=== PATIENT | male | born 1950 | race Caucasian/White ===

== ENCOUNTER 2016-09-23 16:27 | Observation (INO) | payer SELFPAY ==
[2016-09-23 16:37] VITALS: BMI 22.1
[2016-09-23] MEDS ORDERED: ASPIRIN (CHEWABLE) 81 MG TAB PO ONE (16:53)
[2016-09-23 17:00] LABS: AUTOMATED BASOPHIL 1.1 % (0-2); AUTOMATED EOSINOPHIL 1.3 % (0-5); AUTOMATED LYMPH 26.7 % (17-44); AUTOMATED NEUTROPHIL 62.9 % (45-76); MPV 8.7 fL (7.4-10.4)
[2016-09-23] MEDS ORDERED: NITROGLYCERINE 0.4 MG TAB SL ONE ×2 (17:03→22:04)
[2016-09-23] MEDS ORDERED: NITROGLYCERINE 0.4 MG TAB SL PRN ×2 (17:04→20:03)
[2016-09-23] MEDS ORDERED: METOPROLOL TARTRATE 25 MG TAB PO ONE (17:05)
--- NOTE | 2016-09-23 17:05 | EDPRACDOC ---
- General Information Chief Complaint: Chest Pain Stated Complaint: CP HEAVY WITH ARM & THROAT PAIN Time Seen by Provider: 09/23/16 16:52 Information Source: Patient Mode of Arrival: Walk Home Medications: Home Medications No Home Medications 09/23/16 Allergies/Adverse Reactions: Allergies Allergy/AdvReac Type Severity Reaction Status Date / Time Penicillins Allergy Unknown Verified 06/06/15 16:16 - History of Present Illness Onset: since Saturday HPI: PATIENT PRESENTS C/O CHEST PAIN MIDSTERNUM WITH RADIATION TO B/L SHOULDERS AND NECK. BEGAN 3 DAYS AGO INTERMITTENT. WORSE WITH EXERTION. MILD SOB. EPISODES LASTING 10-20 MINUTES. LAST STRESS TEST 10 YEARS AGO. Chest Pain Location: Reports: Substernal Pain Radiation: Reports: Neck, Shoulder (L), Shoulder (R) Symptoms Occur: Reports: Gradually Cardiac Risk Factors: Reports: Smoker, Family History, Hyperlipidemia, Hypertension. Denies: Diabetes Prehospital Care: Reports: None Pain Came On: Reports: Gradually Pain Status: Present Now Pain Description: Reports: Pressure Pain Severity: Moderate Pain Worsens With: Reports: Exertion Associated Signs and Symptoms: Reports: SOB ED Past Medical History - History Reviewed Yes Nurses notes reviewed and agree except as marked Travel Outside of [place] in the Last 3 Months?: No - Patient Medical History Cardiac History: Reports: Hypertension, Hypercholesterolemia (quit taking medications) Respiratory History: Reports: COPD Psychological History: Denies: Depression Surgical History: Reports: Cholecystectomy, Other (HYPOSPADIAS REPAIR A BABY) - Family Medical History Reports: Cardiac Disorders - Social Medical History Smoking Status: Heavy tobacco smoker (5 or more cigarettes/day or daily pipe/ cigar) ETOH: None Substance Abuse: None Lives With: Family Lives In: Home EDM Review of Systems - Review of Systems ROS Negative Except as Marked: Yes All systems reviewed and were negative except as marked Constitutional: No Symptoms Reported. negative: Fever, Chills, Weakness, Fatigue, Loss of Appetite Eyes: No Symptoms Reported. negative: Redness, Blurred Vision, Double Vision, Discharge, Pain, Light Sensitive, Photophobia Ears: No Symptoms Reported. negative: Pain, Hearing Loss, Drainage, Ear Pulling Throat: No Symptoms Reported. negative: Pain, Swelling Nose: No Symptoms Reported. negative: Congestion, Bleeding, Discharge, Injection, Swelling, Deformity, Ecchymosis, Tender, Abrasion, Laceration Mouth: No Symptoms Reported. negative: Pain, Drooling Respiratory: Shortness of Breath. negative: Barky Cough, Brassy Cough, Cough, Hemoptysis, Wheezing Cardiovascular: Chest Pain. negative: Cyanosis, Edema, Orthopnea, Palpitations , PND, Syncope, Skin Mottling Gastrointestinal: No Symptoms Reported. negative: Pain, Constipation, Nausea, Vomiting, Diarrhea, Melena, Formula Intolerance Genitourinary: No Symptoms Reported. negative: Dysuria, Hematuria, Frequency, Discharge, Bleeding, Testicular Pain, Neurological: No Symptoms Reported. negative: Headache, Dizziness, Seizure, Numbness, Weakness, Speech Difficulty, Gait Difficulty Musculoskeletal: No Symptoms Reported. negative: Neck, Chestwall, Ribs, Back, Shoulder, Arm, Elbow, Forearm, Wrist, Hand, Pelvis, Hip, Femur, Knee, Leg, Ankle , Foot Integumentary: No Symptoms Reported. negative: Itching, Rash, Bruising, Wound Allergic/Immunologic: No Symptoms Reported. negative: Hives, Itching Hematologic: No Symptoms Reported. negative: Lymphadenopathy, Easy Bruising, Easy Bleeding Endocrine: No Symptoms Reported. negative: Weight Gain, Weight Loss Psychiatric: No Symptoms Reported. negative: Anxiety, Depression, Hallucinations, Insomnia, Suicidal - Physical Exam Constitutional: Alert (Awake), No apparent distress Oriented to: Time, Person, Place Last recorded Vital Signs: Last Vital Signs Temp 98.3 F 09/23/16 16:32 Pulse 58 L 09/23/16 16:40 Resp 18 09/23/16 16:40 BP 167/64 09/23/16 16:40 Pulse Ox 97 09/23/16 16:40 Oxygen Pulse Oxygen Saturation 97 O2 Device Oxygen Flow Rate Fraction of Inspired Oxygen ( FIO2) - HEENT Head: Normal ( normocephalic) Eye Exam: Normal (PERRL, EOMI, Sclera white) Oropharynx: Normal (Pharynx:Moist without exudate,Gums-no swelling) Tympanic Membrane: Normal ENT EAC: Normal TMJ: Normal Nose: No Symptoms Reported (septum midline) Neck: Normal (FROM, trachea at midline) - Respiratory/Cardiovascular Respiratory: Normal - CTA (BBS clear to auscultation without adventitious sounds ) Cardiovascular: Normal (RRR without murmur, gallop or rub) - GI Auscultation: Normal (NABS) Palpation: Normal (Soft,No rebound or guarding, non distended) Tenderness: Non tender Boswell's Sign: Negative - Musculoskeletal Back: Normal (Non-Tender) Extremities: Normal (Normal tone, Pulses 2+ No cyanosis or edema, FROM) - Integumentary Skin: Normal, Warm, Dry Lymphatics: Normal (no adenopathy) - Neurologic Memory Impaired: Normal Motor Function: Normal (Normal tone, Pulses 2+ No cyanosis or edema, FROM) Cranial Nerve: Normal (CN II-X11 intact sensation, strength 5/5) Cerebellar: Normal Mood Description: Normal Perception: Normal - Action ASA given in the ED: No - Results 09/23/16 16:35 09/23/16 16:35 WBC 10.3 xk/uL (3.8-10.8) 09/23/16 16:35 RBC 4.92 xM/uL (4.70-6.10) 09/23/16 16:35 Hgb 15.0 g/dL (14.0-18.0) 09/23/16 16:35 Hct 43.5 % (42-52) 09/23/16 16:35 MCV 88 fL (80-94) 09/23/16 16:35 MCH 30.5 pg (27-32) 09/23/16 16:35 MCHC 34.6 g/dl (33-36) 09/23/16 16:35 RDW 13.3 % (11.5-14.5) 09/23/16 16:35 Plt Count 225 xk/uL (130-400) 09/23/16 16:35 MPV 8.7 fL (7.4-10.4) 09/23/16 16:35 Neut % (Auto) 62.9 % (45-76) 09/23/16 16:35 Lymph % (Auto) 26.7 % (17-44) 09/23/16 16:35 [place] % (Auto) 8.0 % (3-10) 09/23/16 16:35 Eos % (Auto) 1.3 % (0-5) 09/23/16 16:35 Baso % (Auto) 1.1 % (0-2) 09/23/16 16:35 Absolute Neuts (auto) 6.39 xk/uL (1.7-8.2) 09/23/16 16:35 Absolute Lymphs (auto) 2.68 xk/uL (0.65-4.75) 09/23/16 16:35 Lab Results 09/23/16 16:35 WBC 10.3 RBC 4.92 Hgb 15.0 Hct 43.5 MCV 88 MCH 30.5 MCHC 34.6 RDW 13.3 Plt Count 225 MPV 8.7 Neut % (Auto) 62.9 Lymph % (Auto) 26.7 [place] % (Auto) 8.0 Eos % (Auto) 1.3 Baso % (Auto) 1.1 Absolute Neuts (auto) 6.39 Absolute Lymphs (auto) 2.68 Laboratory Results - last 24 hr 09/23/16 16:35 WBC 10.3 RBC 4.92 Hgb 15.0 Hct 43.5 MCV 88 MCH 30.5 MCHC 34.6 RDW 13.3 Plt Count 225 MPV 8.7 Neut % (Auto) 62.9 Lymph % (Auto) 26.7 [place] % (Auto) 8.0 Eos % (Auto) 1.3 Baso % (Auto) 1.1 Absolute Neuts (auto) 6.39 Absolute Lymphs (auto) 2.68 Laboratory Results 09/23/16 16:35 Decision Time to Discharge: 19:42 - Departure Yes I personally saw and evaluated the patient. Disposition: Admit IP To This Hospital Condition: Stable Final Diagnosis: Unstable angina Instructions: Chest Pain (ED) Education/Counseling Given To: Patient Education/Counseling Given Regarding: Diagnosis, Treatment, Prognosis Referrals: None,No Provider [Primary Care Provider] - One Week Prescriptions: No Action No Home Medications 0 NA DIR #0 info Decision to Admit Time: 19:42 Decision to admit date: 09/23/16 Decision to admit: from ED - Physician Consulted Hospitalist Time Called: 19:43 Provider Called: Jason Carter Time Paraeducator Returned Call: 19:43
[2016-09-23 17:07] LABS: BLOOD UREA NITROGEN 13 MG/DL (9-20); CALCIUM 8.9 MG/DL (8.4-10.2); CALCULATED OSMOLALITY 264 MOs/Kg (270-290); CHLORIDE 103 mEq/L (98-107); GLUCOSE 96 MG/DL (70-99); SODIUM LEVEL 137 mEq/L (137-146); TOTAL PROTEIN 7.5 G/DL (6.3-8.2)
[2016-09-23 17:12] LABS: PARTIAL THROMB. TIME 25.4 SEC (22-35)
--- NOTE | 2016-09-23 17:53 | DIRPT ---
CLINICAL DATA: Chest pain since Saturday. Emphysema. EXAM: PORTABLE CHEST 1 VIEW COMPARISON: 06/06/2015 FINDINGS: Tapering of the peripheral pulmonary vasculature favors emphysema. Perihilar and infrahilar interstitial accentuation. Cardiac and mediastinal margins appear normal. No pleural effusion identified. IMPRESSION: 1. Emphysema. 2. Infrahilar interstitial accentuation could be a manifestation of atypical pneumonia or early edema. No underlying cardiomegaly is observed. Electronically Signed By: Luis Velarde M.D. On: 09/23/2016 17:50
[2016-09-23] MEDS ORDERED: Pharmacy Review for Metformin - IV Contrast Given SCH (19:00)
--- NOTE | 2016-09-23 19:35 | DIRPT ---
CLINICAL DATA: Worsening chest pain for 5 days. EXAM: CT ANGIOGRAPHY CHEST WITH CONTRAST TECHNIQUE: Multidetector CT imaging of the chest was performed using the standard protocol during bolus administration of intravenous contrast. Multiplanar CT image reconstructions and MIPs were obtained to evaluate the vascular anatomy. CONTRAST: 100 mL Isovue 370 COMPARISON: None. FINDINGS: Mediastinum/Lymph Nodes: No pulmonary emboli or thoracic aortic dissection identified. No evidence of cardiomegaly or pericardial effusion. No masses or pathologically enlarged lymph nodes identified. Lungs/Pleura: No pulmonary mass, infiltrate, or effusion. Mild chronic appearing peripheral knee pulmonary interstitial prominence noted in without rangel honeycombing. Upper abdomen: No acute findings. Musculoskeletal: No chest wall mass or suspicious bone lesions identified. Review of the MIP images confirms the above findings. IMPRESSION: No evidence of pulmonary embolism or other acute findings. Mild chronic interstitial lung disease. Electronically Signed By: Romel Garnica M.D. On: 09/23/2016 19:32
[2016-09-23] MEDS ORDERED: ACETAMINOPHEN 325 MG/TAB TABLET PO PRN (20:57)
[2016-09-23] MEDS ORDERED: PROMETHAZINE 25 MG/ML VIAL IV PRN (20:57)
[2016-09-23] MEDS ORDERED: MORPHINE 2 MG/ML INJECTION IV PRN (20:57)
[2016-09-23] MEDS ORDERED: BISACODYL 5 MG TAB PO PRN (20:57)
[2016-09-23] MEDS ORDERED: SIMETHICONE 80 MG TAB PO PRN (20:57)
[2016-09-23] MEDS ORDERED: TEMAZEPAM 15 MG CAP PO PRN (20:57)
[2016-09-23] MEDS ORDERED: SENNA CONCENTRATE TAB PO PRN (20:57)
[2016-09-23] MEDS ORDERED: GUAIFEN 100 MG-DEXTROMETH 10 MG PER 5 ML PO PRN (20:57)
[2016-09-23] MEDS ORDERED: ACETAMINOPHEN 325 MG SUPP PR PRN (20:57)
[2016-09-23] MEDS ORDERED: ONDANSETRON HCL 4 MG/2 ML VIAL IV PRN (20:57)
[2016-09-23] MEDS ORDERED: Docusate Sodium 100 MG CAP PO PRN (20:57)
[2016-09-23] MEDS ORDERED: BENZONATATE 100 MG PERLES PO PRN (20:57)
[2016-09-23] MEDS ORDERED: Pharmacy Order Set Alert SCH (21:00)
[2016-09-23] MEDS ORDERED: CARVEDILOL 3.125 MG TAB PO SCH (21:00)
[2016-09-23] MEDS ORDERED: ATORVASTATIN 40 MG TAB PO SCH (21:00)
[2016-09-23] MEDS ORDERED: LISINOPRIL 2.5 MG TAB PO SCH (21:00)
--- NOTE | 2016-09-23 21:12 | HISTPHYS ---
- Chief Complaint chest pain - History of Present Illness PRIMARY CARE PROVIDER: Dr. Gutierrez in the [facility] HPI: The patient is a 66yo man who presents with acute chest pain. He changed the melonie in the kitchen 4 days ago and had neck and back pain. Then the next day started having chest pain and shortness of breath. Worse today. He came toward hospital then decided to go home. He walked up some stairs at home and developed severe chest pain. Gets lots of exercise: 4 days ago walked the entire [place] [facility]. Onset: 3 days ago. Duration: intermittent. Location: substernal. Radiation: bilateral arms and into neck. Character: Pain up to 7/10 at times. Dull ache and pressure. Alleviated by: Nothing. Exacerbated by: Nothing. Associated Symptoms: Bilateral arms felt heavy. [place] cramping in neck anterior bilaterally. Mild shortness of breath; he noticed it is harder to sing. No diaphoresis. Treatments: none at home except usual medications. PMH: Has not had hypertension. Hyperlipidemia - tried a statin and it caused muscle aches PTSD No diabetes SOC: Smoker - 2 ppd. Started 16 yo. No alcohol. No drugs. FAM: Mother: CHF, DM Father: at 93 yo. PGF: [place] in 70s. - Medical History Cardiac History: Reports: Hypercholesterolemia (quit taking medications) Psychological History: Reports: Anxiety (PTSD). Denies: Depression - Surgical History Reports: Cholecystectomy, Other (HYPOSPADIAS REPAIR A BABY) - Medictions/Allergies Allergies Penicillins Allergy (Verified 06/06/15 16:16) Unknown Current Medication List: Reviewed Home Medications No Home Medications 09/23/16 - Family History Reports: Cardiac Disorders (Mother: CHF. PGF: [place] in 70s.) FAM: Mother: CHF, DM Father: at 93 yo. PGF: [place] in 70s. - Social History Smoking Status: Heavy tobacco smoker (5 or more cigarettes/day or daily pipe/ cigar) (Smoker - 2 ppd. Started 16 yo.) Social History: Denies: Alcohol Use, Substance Use Disorder - Review of Systems GENERAL: No Fever, chills, or diaphoresis. Positive for fatigue/malaise. HEENT: No ear pain or discharge. No nasal discharge or bleeding. No throat pain or swelling. No eye pain or eye redness. RESPIRATORY: Occasional cough, wheezing. Positive for shortness of breath. CARDIOVASCULAR: Chest pain but no palpitations. GI: No abdominal pain, nausea, vomiting, diarrhea, constipation, or bloody stool. NEUROLOGICAL: No headache or focal weakness. INTEGUMENT: no rashes, itching, or lesions. LYMPHATIC SYSTEM: no lymph node swelling or pain. MUSCULOSKELETAL: no pain or joint swelling. GENITOURINARY: No dysuria or hematuria. ENDOCRINE: No polyuria or polydipsia. HEME: No chronic anemia, bleeding, or easy bruising. - Physical Exam Vital Signs: Initial Vitals Temperature 98.3 F 09/23/16 16:32 Pulse Rate 63 09/23/16 16:32 Respiratory Rate 18 09/23/16 16:32 Blood Pressure 173/78 09/23/16 16:32 Pulse Oxygen Saturation 97 09/23/16 16:32 Vital Signs - 24 hr 09/23/16 09/23/16 09/23/16 16:32 16:37 16:40 Temperature 98.3 F Pulse Rate 63 60 58 L Respiratory 18 18 Rate Blood Pressure 173/78 167/64 Pulse Oxygen 97 97 Saturation 09/23/16 09/23/16 09/23/16 16:47 17:11 17:21 Temperature Pulse Rate 60 71 66 Respiratory 18 18 18 Rate Blood Pressure 167/64 139/72 127/66 Pulse Oxygen 96 96 96 Saturation 09/23/16 09/23/16 09/23/16 17:40 17:51 18:20 Temperature Pulse Rate 64 61 61 Respiratory 18 18 18 Rate Blood Pressure 132/61 121/67 107/56 L Pulse Oxygen 96 96 96 Saturation 09/23/16 09/23/16 09/23/16 18:40 19:11 19:40 Temperature Pulse Rate 56 L 56 L 62 Respiratory 18 18 18 Rate Blood Pressure 107/56 L 115/59 L 104/59 L Pulse Oxygen 96 96 96 Saturation 09/23/16 09/23/16 09/23/16 20:11 20:41 20:54 Temperature Pulse Rate 54 L 56 L 78 Respiratory 18 18 18 Rate Blood Pressure 98/56 L 110/58 L 110/58 L Pulse Oxygen 96 96 99 Saturation Weight: 68 kg Height: 5 feet 9 inch BMI: 22.2 - Other Exam Other Exam Findings: GENERAL: Ill-appearing, well nourished, no acute distress. HEENT: Normocephalic, atraumatic; pupils equal and round. Nares patent, without discharge or bleeding. No oropharyngeal lesions or erythema. Mucous membranes are dry. NECK: is supple, no masses, trachea midline. RESPIRATORY: Clear to auscultation bilaterally. Chest wall movements are symmetric. No use of accessory muscles to breathe. No rales, rhonchi. Bilateral wheezing. CARDIOVASCULAR: Normal S1, S2. Murmur 2/6 systolic. No rubs, or gallops. PMI non -displaced. Carotids: no carotid bruits. No bradycardia or tachycardia. DP pulses 2+ bilaterally. GI: soft, nontender, non-distended, normal active bowel sounds. No hepatosplenomegaly. INTEGUMENT: Clean, dry, and intact. No rashes. No lesions. MUSCULOSKELETAL: Moving all extremities. No cyanosis. No clubbing. Edema: none bilaterally. NEUROLOGICAL: Cranial nerves 2-12 grossly intact. Motor 5/5 throughout. Reflexes : 2+ bilaterally. Babinski: toes downgoing bilaterally. Intact Finger to nose. Sensory grossly intact to light touch. Intact rapid alternating movements bilaterally. No pronator drift. PSYCHIATRIC: Fully oriented. Normal and appropriate affect. LYMPHATIC: No cervical lymphadenopathy. No supraclavicular lymphadenopathy. - Lab Results Laboratory Results - last 24 hr 09/23/16 09/23/16 09/23/16 16:35 16:35 16:35 WBC 10.3 RBC 4.92 Hgb 15.0 Hct 43.5 MCV 88 MCH 30.5 MCHC 34.6 RDW 13.3 Plt Count 225 MPV 8.7 Neut % (Auto) 62.9 Lymph % (Auto) 26.7 [place] % (Auto) 8.0 Eos % (Auto) 1.3 Baso % (Auto) 1.1 Absolute Neuts (auto) 6.39 Absolute Lymphs (auto) 2.68 PT 10.1 INR 1.0 APTT 25.4 Sodium 137 Potassium 4.2 Chloride 103 Carbon Dioxide 24 Anion Gap 14 BUN 13 Creatinine 0.90 Estimated GFR (MDRD) > 60 Glucose 96 Calculated Osmolality 264 L Calcium 8.9 Total Bilirubin 0.8 AST 23 ALT 26 Alkaline Phosphatase 55 Troponin I 0.03 Mov-T-Exujtnshgxw Pept 509 Total Protein 7.5 Albumin 4.3 09/23/16 19:40 WBC RBC Hgb Hct MCV MCH MCHC RDW Plt Count MPV Neut % (Auto) Lymph % (Auto) [place] % (Auto) Eos % (Auto) Baso % (Auto) Absolute Neuts (auto) Absolute Lymphs (auto) PT INR APTT Sodium Potassium Chloride Carbon Dioxide Anion Gap BUN Creatinine Estimated GFR (MDRD) Glucose Calculated Osmolality Calcium Total Bilirubin AST ALT Alkaline Phosphatase Troponin I 0.09 Zpt-J-Bokppzwdveu Pept Total Protein Albumin - Diagnostic Findings EK bpm. Sinus bradycardia. Reviewed EKG personally. EGD #2: 56 bpm. Sinus bradycardia. T wave inversion in V2. Possible septal infarct, age undetermined. Chest x-ray, viewed personally: EXAM: PORTABLE CHEST 1 VIEW COMPARISON: 06/06/2015 FINDINGS: Tapering of the peripheral pulmonary vasculature favors emphysema. Perihilar and infrahilar interstitial accentuation. Cardiac and mediastinal margins appear normal. No pleural effusion identified. IMPRESSION: 1. Emphysema. 2. Infrahilar interstitial accentuation could be a manifestation of atypical pneumonia or early edema. No underlying cardiomegaly is observed. CTA Chest: EXAM: CT ANGIOGRAPHY CHEST WITH CONTRAST TECHNIQUE: Multidetector CT imaging of the chest was performed using the standard protocol during bolus administration of intravenous contrast. Multiplanar CT image reconstructions and MIPs were obtained to evaluate the vascular anatomy. CONTRAST: 100 mL Isovue 370 COMPARISON: None. FINDINGS: Mediastinum/Lymph Nodes: No pulmonary emboli or thoracic aortic dissection identified. No evidence of cardiomegaly or pericardial effusion. No masses or pathologically enlarged lymph nodes identified. Lungs/Pleura: No pulmonary mass, infiltrate, or effusion. Mild chronic appearing peripheral knee pulmonary interstitial prominence noted in without rangel honeycombing. Upper abdomen: No acute findings. Musculoskeletal: No chest wall mass or suspicious bone lesions identified. Review of the MIP images confirms the above findings. IMPRESSION: No evidence of pulmonary embolism or other acute findings. Mild chronic interstitial lung disease. - Assessment (1) Chest pain R07.9 - CHEST PAIN, UNSPECIFIED Acute Present on Admission: Yes Qualifiers: Chest pain type: C Ischemic chest pain type: I Rule out myocardial infarction. Plan: Obtain cardiac enzymes x 3. Place patient on telemetry. Give patient oxygen, aspirin. Give nitroglycerin, and morphine as needed for chest pain. Give statin. Stress test has been ordered for the morning. Patient has been advised, if the stress test is negative, to follow up with the primary care provider for evaluation of other potential causes of the chest pain. (2) Wheezing R06.2 - WHEEZING Acute Present on Admission: Yes Likely due to smoking and possibly early COPD. Plan: Scheduled Duonebs. Patient told to follow up with his primary care doctor for further evaluation. (3) Murmur R01.1 - CARDIAC MURMUR, UNSPECIFIED Acute Present on Admission: Yes Noted on exam. Plan: Encouraged patient to see his primary care doctor for recheck. (4) Tobacco abuse Z72.0 - TOBACCO USE Acute Present on Admission: Yes Counseled patient to quit. Case Care Discussed with: Patient, Nursing Staff
[2016-09-23] MEDS ORDERED: ENOXAPARIN 40 MG/0.4 ML PFS SQ SCH (22:00)
[2016-09-23] MEDS ORDERED: Vaccine Screening Complete SCH (23:00)
[2016-09-23 23:52] VITALS: TEMP 98.1
[2016-09-24] MEDS ORDERED: Enoxaparin 1 mg per kg per dose SQ SCH (01:00)
[2016-09-24] MEDS ORDERED: ENOXAPARIN 80 MG/0.8 ML PFS SQ SCH (01:00)
[2016-09-24] MEDS ORDERED: Albuterol/Ipratropium Neb 3 ML NEB NEB SCH (02:00)
[2016-09-24 05:36] VITALS: BP 122/58
[2016-09-24 07:34] VITALS: PULSE 55
[2016-09-24] MEDS ORDERED: ASPIRIN 325 MG TAB PO SCH (08:00)
--- NOTE | 2016-09-24 13:29 | PCM.DCS92 ---
Discharge Disposition: AMA Discharge Condition: Stable Physician Follow up/Referrals: None,No Provider [Primary Care Provider] - One Week Home Medications / New Prescriptions: No Action No Home Medications 0 NA DIR #0 info O2 Device: Room Air - DC Summary Notes Hospital Course Note:: Discharge summary on patient named VERITO VIDES admitted to [facility] on 09/23/16 by Jason Carter MD. Date of discharge is []. Patient admitted with chest pain left against medical advice before I could see him. - Physical Exam Vital Signs: Last Vital Signs Temp 98.1 F 09/24/16 05:32 Pulse 55 L 09/24/16 07:25 Resp 18 09/24/16 05:32 BP 122/58 L 09/24/16 05:32 Pulse Ox 96 09/24/16 05:32 Oxygen Pulse Oxygen Saturation 96 O2 Device Room Air Oxygen Flow Rate Fraction of Inspired Oxygen ( FIO2) Constitutional: Alert (Awake), No apparent distress Oriented to: Time, Person, Place - HEENT Head: Normal ( normocephalic) Eye: Normal (PERRL, EOMI, Sclera white) Oropharynx: Normal (Pharynx:Moist without exudate,Gums-no swelling) Tympanic Membrane: Normal ENT EAC: Normal TMJ: Normal Nose: No Symptoms Reported (septum midline) - Respiratory/Cardiovascular Respiratory: Normal - CTA (BBS clear to auscultation without adventitious sounds ) Cardiovascular: Normal (RRR without murmur, gallop or rub) - GI Auscultation: Normal (NABS) Palpation: Normal (Soft,No rebound or guarding, non distended) Tenderness: Non tender Boswell's Sign: Negative - Musculoskeletal Back: Normal (Non-Tender) Extremities: Normal (Normal tone, Pulses 2+ No cyanosis or edema, FROM) - Integumentary Skin: Normal, Warm, Dry Lymphatics: Normal (no adenopathy) - Neurologic Memory Impaired: Normal Cerebellar: Normal Mood Description: Normal Perception: Normal
--- NOTE | 2016-09-24 14:51 | CAPUEKG ---
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 Abnormal ECG Electronically Signed On 09-24-16 14:50:46 EST by Thong Booth [id number] [id number]
== END 2016-09-24 08:12 | disposition left against medical advice (07) ==
LOC: ED 16:27 → PCU 20:02
PROVIDERS: ADMIT Internal Medicine; ATTEND Hospitalist
DX: R07.9 Chest pain, unspecified (principal); R06.2 Wheezing; R01.1 Cardiac murmur, unspecified; E78.5 Hyperlipidemia, unspecified; F17.210 Nicotine dependence, cigarettes, uncomplicated; Z71.6 Tobacco abuse counseling
CPT/HCPCS: 36415; 71010; 71275; 80053; 83880; 84484; 85025; 85610; 85730; 93005; 94640; 99285; 99406; A9698; G0378; J3490; J7620; J1650